=== PATIENT | male | born 1995 | race Caucasian/White ===

== ENCOUNTER 2018-10-04 03:38 | Emergency (ER) | payer SELFPAY ==
[~2018-10-04] VITALS: Ht 188 cm; Wt 70.0 kg
--- NOTE | 2018-10-04 03:45 | NUR ---
BIB [facility] PER EMT PT WAS OUT WIT FRIENDS CELEBRATING HIS BIRTHDAY, + ALCOHOL, +COCAINE. PT HAD EMESIS X2 EPISODES SCUTCHER TENDER, FSBS-=310, GCS-3, PT NONVERBAL, NOTED PT WITH INCOMPREHENSIBLE MUMBLING, B/L PUPILS DILATED. MONITORS APPLIED, SIDERAILS UP X2, CALL LIGHT WITHIN REACH
[2018-10-04] MEDS ORDERED: ONDANSETRON 2MG/ML, 2ML IVPush ONE (04:00)
[2018-10-04] MEDS ORDERED: ONDANSETRON 2MG/ML, 2ML ONE (04:00)
--- NOTE | 2018-10-04 04:04 | NUR ---
PT MEDICATED PER MAR
--- NOTE | 2018-10-04 05:10 | NUR ---
PT RESTING WITH EYES CLOSED, NADN, EQUAL CHEST RISE/FALL OBSERVED, MONITORS IN PLACE, CALL LIGHT WITHIN REACH
[2018-10-04 05:59] VITALS: BP 92/58
--- NOTE | 2018-10-04 06:00 | NUR ---
PT SITTING UP ON GURNEY, AROUSES TO VERBAL COMMAND AND QUICKLY FALLS BACK TO SLEEP, MONITORS IN PLACE, CALL LIGHT WITHIN REACH.
--- NOTE | 2018-10-04 08:34 | NUR ---
TASK RN: Patient is ambulatory with steady gait, brushing his teeth independently.
== END 2018-10-04 09:04 | disposition home or self-care (01) ==
LOC: ED 08:58
DX: F10.121 Alcohol abuse with intoxication delirium (principal); R11.10 Vomiting, unspecified
CPT/HCPCS: 82962; 93005; 96374; 99283; J2405